=== PATIENT | male | born 1955 | race Caucasian/White ===

== ENCOUNTER → 2017-05-08 12:38 | Outpatient (CLI) | payer BC ==
[2016-05-04 11:31] VITALS: BMI 22.4
[~2017-05-08 12:38] MED LIST: BAYER CHEWABLE81 MG PO; LAMICTAL200 MG PO; PLAVIX75 MG PO
== END | disposition home or self-care (01) ==
LOC: D.US 12:38
DX: K40.30 Unilateral inguinal hernia, with obstruction, without gangrene, not specified as recurrent (principal)